=== PATIENT | female | born 1985 | race Caucasian/White ===

== ENCOUNTER 2017-11-17 03:57 | Day surgery (SDC) | END 2017-11-17 18:43 | disposition home or self-care (01) ==

== ENCOUNTER 2017-12-16 17:57 | Emergency (ER) | END 2017-12-16 22:37 | disposition home or self-care (01) ==

== ENCOUNTER 2018-02-25 22:59 | Emergency (ER) | END 2018-02-26 02:35 | disposition home or self-care (01) ==